=== PATIENT | male | born 1970 | race Caucasian/White ===

== ENCOUNTER 2019-03-24 19:26 | Emergency (ER) | payer OTHER, SELFPAY ==
[2019-03-24 19:27] VITALS: BP 167/96; PULSE 66; RESP 16; TEMP 36.7; O2SAT 100; BMI 32.5
--- NOTE | 2019-03-24 19:58 | EKG12_ITS ---
Test Reason : CP Blood Pressure : / mmHG Vent. Rate : 064 BPM Atrial Rate : 064 BPM P-R Int : 210 ms QRS Dur : 096 ms QT Int : 384 ms P-R-T Axes : 059 -09 035 degrees QTc Int : 396 ms Sinus rhythm with 1st degree A-V block Otherwise normal ECG Confirmed by LUIS CM, EDEL ([id number]), television news video editor MANJIT SMITH ([id number]) on 03/29/2019 10:34:37 AM Referred By: GAL Confirmed By:TASHIA SMITH MD
--- NOTE | 2019-03-24 20:00 | RAD_ITS ---
STUDY: X-RAY CHEST REASON FOR EXAM: Male, 48 years old. CHEST PAIN TECHNIQUE: Single AP portable view of the chest. COMPARISON: 01/28/2011 FINDINGS: The lungs are clear and expanded. There is no demonstrated pleural abnormality. Normal size heart. Normal mediastinum and brian. Normal visualized pulmonary arteries. Normal visualized aortic arch and descending thoracic aorta. Normal visualized thoracic spine. Normal visualized ribs, clavicles, and shoulders. There is no demonstrated abnormality of the visualized soft tissue structures of the upper abdomen. RAD/Chest 1 View (Portable) IMPRESSION: Normal x-ray examination of the chest. Electronically Signed: Nathan Martinez DO at 20:27 EST Tel , Service support ,
[2019-03-24 20:01] VITALS: O2SAT 95
[2019-03-24] MEDS: Aspirin 81 MG TAB.CHEW 324 MG PO (20:04)
[2019-03-24 20:12] LABS: Absolute Lymphocyte Count 2.62 X10^3/uL (0.83-4.51); Absolute Neutrophil Count 2.7 X10^3/uL (2.0-7.7); Basophil# 0.01 X10^3/uL; Basophil% 0.2 % (0-1); Eosinophil# 0.11 X10^3/uL; Eosinophils% 1.9 % (0-5); Hematocrit 40.6 % (40-54); Hemoglobin 13.6 g/dL (13.0-16.5); Lymphocyte # 2.62 X10^3/ul (4.0); Lymphocyte % 44.3 % (19-41); Mean Corp Hgb Conc 33.5 g/dL (32-36); Mean Corpuscular Hgb 29.8 pg (27.0-32.0); Mean Platelet Vol. 11.6 fl (6.2-12.0); Monocyte# 0.43 X10^3/uL; Monocyte% 7.3 % (0-10); NRBC Flagged by Analyzer 0 % (0-5); Neutrophil # 2.73 X10^3/uL (2.7-7.7); Neutrophil % 46.1 % (47-70); Platelet Count 164 K/mm3 (150-450); RBC Distribution Width CV 12.7 % (11.6-14.6); RBC Distribution Width SD 41.5 fl (35.1-43.9); Red Blood Count 4.56 M/mm3 (4.6-6.2); White Blood Count 5.9 K/mm3 (4.4-11.0)
--- NOTE | 2019-03-24 20:20 | ED.DCSUM_ITS ---
- ER Visit Summary Date of Service: 03/24/19 Chief Complaint: Chest pain History of Present Illness: The patient is a 48 M who presents with chest pain that is been waxing and waning over the past 1 to 2 weeks. Patient states the pain is across his chest. Patient is unable to describe his pain. Patient s tates it is not necessarily worse with any exertion. Patient admits to occasional shortness of breath. Patient also admits to some lightheadedness and acid reflux. Patient denies any nausea or vomiting. Patient denies any diaphoresis or palpitations. Patient did have a recent plane ride approximately 3 weeks ago. Patient is concerned over possible blood clot. Physical Examination: Vital signs are stable. Patient is afebrile. Patient is in no acute distress. Oral mucosa is pink and moist. Neck is supple. Trachea is midline. There is no JVD noted. Heart was regular rate and rhythm. Lungs are clear and equal bilaterally. Abdomen is soft. Bowel sounds are normal. There is no tenderness. There is no rebound or guarding noted. Skin is warm dry. Cranial nerves II through XII are intact. There are no focal motor or sensory deficits noted. Extremities are intact. There is no calf tenderness or edema. Test Results: EKG showed normal sinus rhythm with a first-degree AV block. There are no acute ST or T wave changes. CBC, basic metabolic profile, d-dimer, and troponin were obtained were all within normal limits. Chest x-ray was obtained and does not show any acute cardiopulmonary process. Emergency Department Course and Treatment: Patient was given aspirin here. Patient was feeling better on reevaluation. Patient was advised of his results. Patient has a HEART score of 2 and a AIMEE risk score of 1. Patient was advised that this is low risk for acute cardiac event. Patient was instructed to follow-up with his primary care physician in 5 to 7 days for further evaluation. Patient understood and was agreeable with the plan. All questions were answered. Disposition: Discharge home Impression: Chest pain This note was generated with [employer] dictation software. It may contain incorrect words, spelling, and punctuation that were not noted in review of the chart prior to signing ED Disposition - Plan for ED Patient: Disposition: Home or Assisted Living Diagnosis: Chest pain Instructions: CHEST PAIN, Uncertain Cause Referrals: Aneudy Kim MD [Primary Care Provider] - 3-5 Days
[2019-03-24 20:26] LABS: Anion Gap 3 (5-15); BUN 15 mg/dL (7-18); BUN/Creat Ratio 12.2 RATIO (10-20); Calcium,Total 9.3 mg/dL (8.5-10.1); Chloride 108 mmol/L (98-107); Creatinine, Serum 1.23 mg/dL (0.70-1.30); D-Dimer Quantitative (DVT/PE) <= 0.27 FEU/ug/m (0.27-0.49); EST Glomerular Filtration Rate 67 mL/min (>60); Est Glom Filt Rate - Afr Amer 81 mL/min (>60); Estimated Creatinine Clearance 82.37 ml/min; Glucose 103 mg/dL (74-106); Sodium Level 141 mmol/L (136-145)
[2019-03-24 21:27] VITALS: BP 134/78; PULSE 59; RESP 24; O2SAT 94
--- NOTE | 2019-03-24 21:32 | ED.RN ---
DR. ROGER MADE AWARE OF A PROLONGED QT AND ONE PAUSE THE MONITOR SHOWED WHEN I WAS DISCHARGING HIM. HE LOOKED AT THE EKG AND THE QT WAS SIMILAR ON THE EKG. HE SAID THE PATIENT DOESN'T HAVE ANY CHEST PAIN AND IS OK TO GO HOME. I TOLD THE PATIENT THIS AND TOLD HIM TO RETURN WITH ANY RECURRING CHEST PAIN THAT IS DIFFERENT OR RADIATES TO JAW, SHOULDER NECK ETC. PATIENT OK WITH INSTRUCTIONS.
== END 2019-03-24 21:34 | disposition home or self-care (01) ==
PROVIDERS: Emergency Provider Emergency Medicine; PCP Family Medicine
DX: R07.9 Chest pain, unspecified (principal)
CPT/HCPCS: 71045; 80048; 84484; 85025; 85379; 93005; 99285; A4216

== ENCOUNTER → 2022-05-16 | Outpatient (CLI) | payer BC, SELFPAY ==
--- NOTE | 2022-05-16 12:45 | CT_ITS ---
STUDY: CT CHEST WITH CONTRAST REASON FOR EXAM: Male, 51 years old. Intermittent chest pain, family history of heart disease. OVERREAD ONLY RADIATION DOSAGE (If Supplied By Facility): CTDIvol = ( 34.29 ) mGy, DLP = ( 1477.18 ) mGycm TECHNIQUE: Transaxial imaging was performed following intravenous administration of IV 57mL Isovue-370. Individualized dose optimization techniques were used for this CT. COMPARISON: No relevant priors. FINDINGS: CHEST The lungs are normal. There is no demonstrated pleural abnormality. No significant coronary artery calcification is seen. Normal mediastinum. Normal hilar regions. Normal unenhanced pulmonary arteries. Normal aorta arch and descending thoracic aorta. Normal osseous structures. Fatty infiltration of the liver. Scattered hepatic cysts. CT/Limited Chest CT Cardiac Only IMPRESSION: No significant coronary artery calcification is seen. Scattered hepatic cysts. Electronically Signed: Jorden Tamayo MD at 14:30 EDT ,
[2022-05-16 12:59] VITALS: BP 115/78; PULSE 53; RESP 18; TEMP 36.3; O2SAT 100; BMI 30.5
[2022-05-16] MEDS: 0.9% Saline Lock 10 ML Syringe IV (13:00)
[2022-05-16 13:16] VITALS: BP 115/78; PULSE 53
[2022-05-16] MEDS: Nitroglycerin SL (ED/IMG/CATH) 0.4 MG TABLET SL (13:16)
[2022-05-16 13:36] LABS: CREATININE FINGERSTICK < 0.9 mg/dL (0.70-1.30); EGFR FINGERSTICK > 60.0000 mL/min (>60)
--- NOTE | 2022-05-16 18:39 | CCTA.WCONT ---
CCTA w/Cont Coronary Arteries Date of Study:: 05/16/22 LEFT MAIN CORONARY ARTERY: Normal arising from the left coronary cusp [] LEFT ANTERIOR DESCENDING CORONARY ARTERY: Medium size vessel with 4 diagonal branches and coursing towards the apex of the ventricle. No significant atherosclerotic plaquing was noted in this vessel [] LEFT CIRCUMFLEX CORONARY ARTERY: This bifurcated from the left main coronary artery with minimal coronary calcium plaque and mild atherosclerotic plaquing. No high-grade stenosis was noted. [] RIGHT CORONARY ARTERY: Arising from the right coronary cusp dominant with no significant atherosclerotic plaquing. [] THORACIC AORTA: Normal Conclusion: Coronary cardiac CT angiogram with mild atherosclerotic plaquing. No high-grade obstruction is noted.
== END | disposition home or self-care (01) ==
PROVIDERS: PCP Family Medicine; Referring Provider Internal Medicine Cardiovascular Disease; Visit Provider Internal Medicine Cardiovascular Disease
DX: R07.9 Chest pain, unspecified (principal)
CPT/HCPCS: 75574; 76380; Q9967

== ENCOUNTER → 2024-03-08 | Outpatient (CLI) | payer BC, SELFPAY ==
[2024-03-08 08:40] LABS: AST(SGOT) 18 U/L (15-37); Alanine Aminotransfer ALT/SGPT 25 U/L (16-61); Alkaline Phosphatase 57 U/L (45-117); Bilirubin, Direct 0.16 mg/dL (0.00-0.30); Cholesterol 179 mg/dL (200); Globulin 3.5 g/dL (2.2-4.2); High Density Lipoprotein 57 mg/dL; Protein, Total 7.5 g/dL (6.4-8.2); Triglycerides 126 mg/dL; Very Low Density Lipoprotein 25 mg/dL (5-40)
== END | disposition home or self-care (01) ==
LOC: PAVLAB 08:09
PROVIDERS: PCP Family Medicine; Referring Provider Internal Medicine Cardiovascular Disease; Visit Provider Internal Medicine Cardiovascular Disease
DX: E78.00 Pure hypercholesterolemia, unspecified (principal); I10 Essential (primary) hypertension; R07.89 Other chest pain; F41.9 Anxiety disorder, unspecified
CPT/HCPCS: 36415; 80061; 80076

== ENCOUNTER → 2024-03-10 | Outpatient (CLI) | payer BC, SELFPAY ==
--- NOTE | 2024-03-10 13:58 | NEURO ---
NCS and/or EMG Patient Report Ordering Doctor: Aneudy Kim DATE OF SERVICE: 03/10/24 Andrew presents with complaints of numbness and tingling in the left arm. He does report left-sided neck pain and stiffness. Electrodiagnostic findings: Left median motor nerve demonstrates normal distal latency, amplitude and conduction velocity. Normal left ulnar motor response, including conduction across the elbow. Normal left median and ulnar F?waves. Sensory responses are within normal limits. Needle EMG testing was performed in the left upper limb. All muscles tested, including the left cervical paraspinals, showed no evidence of denervation with normal motor unit action potentials. Electrodiagnostic impression: This is a normal electrodiagnostic study of the left upper limb. There is no electrodiagnostic evidence for peripheral neuropathy, including carpal tunnel or cubital tunnel syndrome. There is no electrodiagnostic evidence for brachial plexopathy or cervical radiculopathy. Multi Select Codes Neurology Neurology Interp Codes: 03497-51 Musc test done w/n test comp (interp) and 16514-60 Nrv cndj test 7-8 studies (interp)
== END | disposition home or self-care (01) ==
LOC: PSN 13:21
PROVIDERS: PCP Family Medicine; Referring Provider Family Medicine; Visit Provider Family Medicine
DX: R20.0 Anesthesia of skin (principal); R20.2 Paresthesia of skin
CPT/HCPCS: 95886; 95910